=== PATIENT | female | born 1990 | race Caucasian/White ===

== ENCOUNTER 2017-04-29 16:44 | Emergency (ER) | payer MEDICAID, OTHER ==
[~2017-04-29] VITALS: Wt 76.0 kg
[~2017-04-29 16:44] MED LIST: CALC500T PO; FERR27TA PO; PREN-39 PO
[2017-04-29 17:41] LABS: URINE BLOOD (Dip) POC Trace-lysed (NEGATIVE)
[2017-04-29] MEDS ORDERED: SOD CHLORIDE 0.9% 1,000 ML IV STA (17:56)
[2017-04-29] MEDS ORDERED: ACETAMINOPHEN 325 MG TAB PO STA (17:56)
--- NOTE | 2017-04-29 18:42 | RADRPT ---
PROCEDURE: Ultrasound right upper quadrant CLINICAL INDICATION: Right upper quadrant abdominal pain. TECHNIQUE: Bobo scale and color Doppler imaging of the right upper quadrant of the abdomen was perf ormed. COMPARISON: None available. FINDINGS: Pancreas: Visualized portions are unremarkable. Liver: Normal in size and echogenicity with no focal hepatic lesion. Hepatopedal flow in the main po rtal vein. Gallbladder: No cholelithiasis, wall thickening, or pericholecystic fluid. Common bile duct: 2.9 mm in diameter. Right Kidney: 10.2 cm in length.Normal echogenicity. No nephrolithiasis, hydronephrosis, or mass. Visualized aorta and IVC: Unremarkable. IMPRESSION: 1. Unremarkable right upper quadrant ultrasound. A source of the patient's pain is not identified. RPTAT: HLBP .Celso Vincent MD, Date Time Electronically viewed and signed by .Celso Vincent MD, MD on 04/29/2017 18:41 .P/
--- NOTE | 2017-04-29 18:53 | RADRPT ---
PROCEDURE: US OB. CLINICAL INDICATION: Vaginal bleeding. TECHNIQUE: Sonographic evaluation of the pelvis using oliva scale and color Doppler imaging was perf ormed. COMPARISON: OB ultrasound dated 02/15/2014. FINDINGS: Single intrauterine with a pole and yolk sac. The crown-rump length equals 1.38 cm. The estimated gestational age equals 8 weeks 2 days by ultrasound criteria. Normal cardiac activity is identified with a HR of 163 bpm. There is a small subchorionic hemorrhage. There are no adnexal masses and there is no free fluid within the cul-de-sac. Uterus: 8.2 x 7.5 cm Right ovary: Not identified. Left ovary: Not identified. IMPRESSION: 1. Single viable intrauterine with an estimated gestational age of 8 weeks 2 days by ultr asound criteria and an estimated date of delivery of 12/07/2017. 2. Small subchorionic hemorrhage. Short interval follow-up is recommended. RPTAT: HLBP .Celso Vincent MD, MD Date Time Electronically viewed and signed by .Celso Vincent MD, on 04/29/2017 18:53 .P/
[2017-04-29 19:03] LABS: BASOPHIL # 0.1 10^3/ul (0.0-0.1); BASOPHILS % 0.6 % (0.0-2.0); EOSINOPHILS # 0.1 10^3/ul (0.0-0.5); HEMATOCRIT 39.4 % (37.0-47.0); HEMOGLOBIN 13.4 g/dl (12.0-16.0); LYMPHOCYTES # 2.2 10^3/ul (0.8-2.9); MEAN CORPUSCULAR HEMOGLOBIN 29.7 pg (29.0-33.0); MEAN CORPUSCULAR VOLUME 87.4 fl (82.0-101.0); MEAN PLATELET VOLUME 10.9 fl (7.4-10.4); MONOCYTE # 0.5 10^3/ul (0.3-0.9); MONOCYTES % 4.8 % (0.0-11.0); NEUTROPHILS % 69.3 % (39.0-77.0); PLATELET COUNT 277 10^3/UL (140-415); RED BLOOD COUNT 4.51 10^6/ul (4.20-5.40); RED CELL DISTRIBUTION WIDTH 12.7 % (11.5-14.5); WHITE BLOOD COUNT 9.3 10^3/ul (4.8-10.8)
[2017-04-29] MEDS ORDERED: CEPH-443 PO (19:52)
[2017-04-29 20:10] VITALS: BP 106/55; PULSE 68; RESP 18; TEMP 97.7
--- NOTE | 2017-04-29 20:21 | ERD ---
ER Documentation Chief Complaint Date/Time DATE: 04/29/17 TIME: 20:15 Chief Complaint ABD PAIN X3 DAYS, VOMITING HPI This patient is a 26-year-old female presenting to the emergency department with complaints of midepigastric abdominal pain associated with 3 episodes of vomiting today. Abdominal pain is been ongoing for 3 days intermittent. Symptoms are not improving patient has taken no medication for relief of symptoms. She denies diarrhea, fevers, chills, or other symptoms. Pain is a 7 out of 10 on the pain scale. Last menstrual cycle was March 03, 2017. She states there is possibility of as she is sexually active without control. ROS All systems reviewed and are negative except as per history of present illness. Medications Home Meds Active Scripts Cephalexin* (Keflex*) 500 Mg Capsule, 500 MG PO TID for 7 Days, #21 CAP Prov:DAVE GROVES PA-C 04/29/17 Reported Medications Calcium Carbonate (Calcium 500) 1 Tab Tablet, 1 TAB PO DAILY 12/14/13 Vits W-Ca,Fe,Fa(<1MG) ( Vitamins) 1 Tab Tablet, 1 TAB PO DAILY 12/14/13 Ferrous Sulfate (Iron) 1 Tab Tablet, 1 TAB PO DAILY Y for amoxicillin 12/14/13 Allergies Allergies: Coded Allergies: No Known Allergies (Verified Allergy, Unknown, 01/14/14) PMhx/Soc Medical and Surgical Hx: pt denies Medical Hx History of Surgery: Yes (C SECTION) Hx Alcohol Use: No Hx Substance Use: No Hx Tobacco Use: No Smoking Status: Never smoker Physical Exam Vitals Vital Signs Date Time Temp Pulse Resp B/P Pulse Ox O2 Delivery O2 Flow Rate FiO2 04/29/17 20:10 97.7 68 18 106/55 98 Room Air 04/29/17 16:46 97.6 76 18 113/58 98 Physical Exam Const: Well-developed, well-nourished female in no acute distress. Head: Atraumatic Eyes: Normal Conjunctiva ENT: Normal External Ears, Nose and Mouth. Neck: Full range of motion..~ No meningismus. Resp: Clear to auscultation bilaterally Cardio: Regular rate and rhythm, no murmurs Abd: Soft, non tender, non distended. Normal bowel sounds Skin: No petechiae or rashes Back: No midline or flank tenderness Ext: No cyanosis, or edema Neur: Awake and alert Psych: Normal Mood and Affect Result Diagram: 04/29/17 1850 Results 24 hrs Laboratory Tests Test 04/29/17 17:46 04/29/17 18:50 Bedside Urine pH (LAB) 6.5 Bedside Urine Protein (LAB) Negative Bedside Urine Glucose (UA) Negative Bedside Urine Ketones (LAB) Negative Bedside Urine Blood Trace-lysed Bedside Urine Nitrite (LAB) Negative Bedside Urine Leukocyte Esterase (L 1+ White Blood Count 9.310^3/ul Red Blood Count 4.5110^6/ul Hemoglobin 13.4g/dl Hematocrit 39.4% Mean Corpuscular Volume 87.4fl Mean Corpuscular Hemoglobin 29.7pg Mean Corpuscular Hemoglobin Concent 34.0g/dl Red Cell Distribution Width 12.7% Platelet Count 00073^3/UL Mean Platelet Volume 10.9fl Neutrophils % 69.3% Lymphocytes % 24.0% Monocytes % 4.8% Eosinophils % 1.0% Basophils % 0.6% Nucleated Red Blood Cells % 0.0/100WBC Neutrophils # (Manual) 610^3/ul Lymphocytes # 2.210^3/ul Monocytes # 0.510^3/ul Eosinophils # 0.110^3/ul Basophils # 0.110^3/ul Nucleated Red Blood Cells # 0.010^3/ul Beta HCG, Quantitative 787845.0mIU/ml Current Medications Medications (Trade) Dose Ordered Sig/Adryl Route PRN Reason Start Time Stop Time Status Last Admin Dose Admin Sodium Chloride (NS) 1,000 ml @ 1,000 mls/hr Q1H STAT IV 04/29/17 17:56 04/29/17 18:55 DC 04/29/17 18:59 Acetaminophen (Tylenol Tab) 650 mg ONCE STAT PO 04/29/17 17:56 04/29/17 17:58 DC 04/29/17 18:58 Procedures/MDM 26-year-old female presenting for vague midepigastric abdominal pain. On exam there was no real tenderness on palpation. The patient is late on her menstrual cycle and has not taken an at home test. Urine was positive in the department and so a further obstetrical workup was conducted. Transvaginal ultrasound as well as right upper quadrant ultrasound was ordered. Abdominal labs are ordered. CBC showed no signs of anemia or leukocytosis. Beta hCG is consistent with term of . Urinalysis is concerning for early urinary tract infection which is uncomplicated. Imaging: PROCEDURE: US OB. CLINICAL INDICATION: Vaginal bleeding. TECHNIQUE: Sonographic evaluation of the pelvis using bobo scale and color Doppler imaging was performed. COMPARISON: OB ultrasound dated 02/15/2014. FINDINGS: Single intrauterine with a pole and yolk sac. The crown-rump length equals 1.38 cm. The estimated gestational age equals 8 weeks 2 days by ultrasound criteria. Normal cardiac activity is identified with a HR of 163 bpm. There is a small subchorionic hemorrhage. There are no adnexal masses and there is no free fluid within the cul-de-sac. Uterus: 8.2 x 7.5 cm Right ovary: Not identified. Left ovary: Not identified. IMPRESSION: 1. Single viable intrauterine with an estimated gestational age of 8 weeks 2 days by ultrasound criteria and an estimated date of delivery of 2017. 2. Small subchorionic hemorrhage. Short interval follow-up is recommended. RPTAT: HLBP .Celso Vincent MD, MD Date Time Electronically viewed and signed by .Celso Vincent MD, on 04/29/2017 18:53 PROCEDURE: Ultrasound right upper quadrant CLINICAL INDICATION: Right upper quadrant abdominal pain. TECHNIQUE: Bobo scale and color Doppler imaging of the right upper quadrant of the abdomen was performed. COMPARISON: None available. FINDINGS: Pancreas: Visualized portions are unremarkable. Liver: Normal in size and echogenicity with no focal hepatic lesion. Hepatopedal flow in the main portal vein. Gallbladder: No cholelithiasis, wall thickening, or pericholecystic fluid. Common bile duct: 2.9 mm in diameter. Right Kidney: 10.2 cm in length.Normal echogenicity. No nephrolithiasis, hydronephrosis, or mass. Visualized aorta and IVC: Unremarkable. IMPRESSION: 1. Unremarkable right upper quadrant ultrasound. A source of the patient's pain is not identified. RPTAT: HLBP .Celso Vincent MD, MD Date Time Electronically viewed and signed by .Celso Vincent MD, MD on 04/29/2017 18:41 Impression: Urinary tract infection. Secondary impression: and not yet delivered. Disposition: Home The patient was given a prescription for cephalexin and she was stable for discharge home. Because of the small subchorionic hemorrhage found on ultrasound the patient was advised to have close follow-up within 48 hours with her [employer] physician and if she is not able to be seen she can return to the emergency department. She is to return immediately for any new or worsening symptoms. She understands and agrees with the discharge plan and diagnosis. I have low suspicion for ectopic , tubo-ovarian abscess, ovarian torsion , cholecystitis, sepsis, or other emergent conditions. Departure Diagnosis: Primary Impression: Urinary tract infection Additional Impression: and not yet delivered Condition: Fair Patient Instructions: Understanding Urinary Tract Infections (UTIs) [facility] Usted se strauss hecho un examen mdico de control que le indica que no est en angelica condicin que requiera tratamiento urgente en el Departamento de Emergencia. Un estudio ms profundo y el tratamiento de mehta condicin pueden esperar sin ningn riesgo hasta que usted sea atendida/o en el consultorio de mehta mdico o angelica cl jairo. Es responsabilidad suya arreglar angelica mackenzie para el seguimiento del abram. MANEJO DE CONDICIONES NO URGENTES EN EL FUTURO 1) Si usted tiene un mdico de atencin primaria: Usted debera llamar a mehta mdico de atencin primaria antes de venir al departamento de emergencia. Despus de las horas de consultorio, mehta doctor o mehta asociado/a est disponible por telfono. El mdico o enfermero de adelina en el servicio telefnico puede asesorarle por david medio para atender el problema, o abram contrario se puede programar angelica mackenzie. 2) Si usted no tiene un mdico de atencin primaria: Llame al mdico o clnica de referencia que aparece abajo new las horas de consultorio para hacer angelica mackenzie para que le vean. CLINICAS: [facility] [phone] [facility] [phone] [address] [facility] [phone] [facility] [phone] [place] [address] [phone] [place] [phone] [place] [employer] [address] [facility] [address] [place] [address] OFFICE FAX , [address] [place] [address] [address] [facility] [address] [place] [address] [address] RODRIGUEZ, [facility] [id number] [facility], [address], [place] [address] [address] [facility] [address] [place] [address] [facility] [address] [place] [address] [phone] [facility] [id number] - [place] JAVIER [address], [place] [address] [address] TORRE, [facility] [address] [facility] [address], [place] [address] [address] WATSON, [facility] [address] [place] [address] Additional Instructions: No mas mejor en 2-3 tomas, regresar. Mas peor en 24 horas, regresear rapidamente. Ir a doctor primario in 5-7 tomas. Usar instrucciones cuando royal medicamento. DAVE GROVES PA-C Apr 29, 2017 20:21
== END 2017-04-29 20:12 | disposition home or self-care (01) ==
LOC: FTE 16:44
DX: O23.41 Unspecified infection of urinary tract in pregnancy, first trimester (principal); R10.13 Epigastric pain; R10.2 Pelvic and perineal pain; Z3A.08 8 weeks gestation of pregnancy
CPT/HCPCS: 76705; 76801; 76817; 81003; 84702; 85025; 86900; 86901; J7030; Z7502; Z7610

== ENCOUNTER 2017-12-01 14:47 | Inpatient (IN) | END 2017-12-05 15:40 | disposition home or self-care (01) | DRG 766 ==